=== PATIENT | female | born 1965 | race Caucasian/White ===

== ENCOUNTER 2018-04-08 09:02 | Outpatient (CLI) | payer BC ==
--- NOTE | 2018-04-15 08:54 | Mammography Report ---
Procedure Date: 04/08/2018 Accession Number: [id number] / [id number] Procedure: MGN - Screening Mammo Dig Bilat CPT Code: FULL RESULT: EXAM: Screening Mammo Dig Bilat DATE: 04/08/2018 9:21 AM CLINICAL HISTORY: 52-year-old female with family history of breast cancer in the mother at age 50. TECHNIQUE: Bilateral CC and MLO views were obtained. COMPARISON: 05/28/2008, 05/25/2007, 01/22/2005. FINDINGS: The breasts demonstrate heterogeneously dense fibroglandular parenchyma bilaterally. No suspicious masses, clustered microcalcifications, or regions of architectural distortion are identified. IMPRESSION: Negative examination RECOMMENDATION: Routine annual screening unless otherwise clinically indicated. BIRADS CATEGORY 1: Negative STANDARD QUALIFYING STATEMENTS: 1. This examination was reviewed with the aid of Computer-Aided Detection (CAD). 2. A negative or benign imaging report should not delay biopsy if clinically suspicious findings are present. Consider surgical consultation if warrented. More than 5% of cancers are not identified by imaging. 3. Dense breasts may obscure an underlying neoplasm.
== END 2018-04-08 09:03 | disposition home or self-care (01) ==
LOC: DI.N 09:02
PROVIDERS: ATTEND Obstetrics & Gynecology
DX: Z12.31 Encounter for screening mammogram for malignant neoplasm of breast (principal); Z80.3 Family history of malignant neoplasm of breast
CPT/HCPCS: 77067

== ENCOUNTER 2018-04-12 18:52 | Outpatient (CLI) | payer BC ==
--- NOTE | 2018-04-15 04:03 | Ultrasound Report ---
Procedure Date: 04/12/2018 Accession Number: [id number] / [id number] Procedure: US - Pelvic w/Transvaginal CPT Code: FULL RESULT: EXAM: Pelvic w/Transvaginal DATE: 04/12/2018 7:51 PM CLINICAL HISTORY: EXCESSIVE AND FREQUENT MENSTRUATION WITH REG CYCLE COMPARISON: None. TECHNIQUE: Realtime transabdominal imaging performed to identify the uterus and adnexa and as an overview of other pelvic structures, followed by transvaginal imaging for better assessment of the endometrium and/or adnexa, with static image documentation. FINDINGS: Uterus: 10.8 x 8.5 x 10.3 cm, volume 493 cc. Retroverted position. Prominent in overall size with heterogeneous echotexture. Masses: Anterior fundal mass measuring 8.5 x 8.5 x 8.1 cm is seen and may represent a submucosal fibroid. This obscures evaluation of the endometrium which cannot be confidently measured. Endometrium: Not well seen, see above. Cervix: Unremarkable. Right Ovary/Adnexa: 2.6 x 1.6 x 2.5 cm, volume 5.5 cc. Limited visualization with no definite abnormality. No adnexal mass is seen. Left Ovary/Adnexa: 2.7 x 1.5 cm, limited visualization with no definite abnormality. No adnexal mass is seen. Free Fluid: None. Other: None. IMPRESSION: Uterine mass measuring up to 8.5 obscuring the endometrium. Due to size and acoustic dropout possibly from calcifications, this is not definitely characterized. While this most likely represents a fibroid with submucosal component, consider MRI for definitive characterization versus clinical management. RADIA
== END 2018-04-12 18:53 | disposition home or self-care (01) ==
LOC: DI 18:52
PROVIDERS: ATTEND Obstetrics & Gynecology
DX: N92.0 Excessive and frequent menstruation with regular cycle (principal); N85.8 Other specified noninflammatory disorders of uterus
CPT/HCPCS: 76830; 76856

== ENCOUNTER 2024-02-11 19:50 | Emergency (ER) | payer BC, OTHER ==
--- NOTE | 2024-02-11 20:13 | ED Physician Documentation ---
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 She is maintained on mycophenolate and tacrolimus. She got home late from [employer] today after her checks and was running into the feet her dogs and tripped and fell onto outstretched left wrist. That is the only major site of pain for which she declines pain medication initial evaluation. She also has scrapes on the right palm, and both knees. PD PAST MEDICAL HISTORY - Present Medications Home Medications: Ambulatory Orders Medication Instructions Recorded Confirmed Clobetasol 0.05% Oint [Temovate 1 applic TOP BID 05/12/18 05/12/18 0.05% Oint] Etonogestrel/Ethinyl Estradiol 1 unit VG ONCE 05/12/18 05/12/18 [Nuvaring Vaginal Ring] HYDROcod/ACETAM 5/325 [[place] 5/325] 1 - 2 tab PO Q6H PRN #15 tablet 02/11/24 - Allergies Allergies/Adverse Reactions: Allergies Allergy/AdvReac Type Severity Reaction Status Date / Time amoxicillin Allergy Nausea Verified 02/11/24 20:00 NSAIDS (Non-Steroidal AdvReac Unknown Verified 02/11/24 20:01 Anti-Inflamma PD ED PE NORMAL - Vitals Vital signs reviewed: Yes - General General: Alert and oriented X 3, No acute distress - HEENT HEENT: PERRL, EOMI - Derm Derm: Normal color, Warm and dry - Extremities Extremities: Other (Dinner fork deformity of the left wrist consistent with a Colles' fracture. Normal neurovascular function of the hand. She has shallow scrapes on both knees and right palm without tenderness or limited range of motion.) Results - Vitals Vitals: Vital Signs - 24 hr 02/11/24 02/11/24 02/11/24 20:01 21:00 21:12 Temperature 36.6 C 36.6 C Heart Rate 86 62 70 Respiratory 20 16 16 Rate Blood Pressure 132/84 H 127/82 H 136/77 H O2 Saturation 100 99 98 02/11/24 02/11/24 02/11/24 21:15 21:30 22:00 Temperature Heart Rate 71 67 66 Respiratory 20 16 16 Rate Blood Pressure 127/86 H 144/95 H O2 Saturation 98 99 02/11/24 02/11/24 02/11/24 22:23 22:30 22:47 Temperature 36.6 C Heart Rate 70 71 78 Respiratory 16 16 20 Rate Blood Pressure 131/88 H 116/79 O2 Saturation 95 96 02/11/24 23:00 Temperature Heart Rate 67 Respiratory 16 Rate Blood Pressure 131/80 H O2 Saturation 99 Oxygen O2 Source Room air - Rads (name of study) L wrist XR Relevant Findings:: Final report received (Comminuted mildly displaced fracture of the distal radius with questionable intra-articular extension and a minimally displaced ulnar styloid fracture), EMP independent interpretation of test Procedures - Splint (location) - Minor LUE Splint applied by: Physician Type of splint: Fiberglass, Long arm, Sugar tong Other: Patient tolerated well, No complications, Neurovascular intact, Sling provided - Reduction Body part reduced: Left, Wrist Fracture or dislocation: Fracture dislocation Reduction aftercare: Alignment improved - Procedural sedation Sedation prep: Informed consent, PE performed, ASA 3 - severe disease Sedation Medications: propofol (40 then 40 then 40mg IVP = 120mg total; for second sedation 80 then 40mg = total 120mg IVP) Mallampati classification: I Patient status during sedation: Responds to tactile Sedation recovery: Recovered uneventfully Time in sedation (Minutes): 26 PD Medical Decision Making - ED course ED course: 58-year-old woman with history of liver transplant presents after a FOOSH injury with an angulated wrist injury. After discussion and written informed consent she was sedated with propofol and a reduction attempt was made and she was splinted. On the first set of postprocedural radiographs obtained at 2154 I was not happy with the persistent angulation of the distal radius. A second sedation was done, and after the second reduction, repeat radiographs done at 4, now I was more happy with the still slightly angulated but much better appearance of the distal radius. She was counseled on home care and orthopedic follow-up. Departure - Departure Disposition: 01 Home, Self Care Clinical Impression: Fracture of left wrist Qualifiers: Encounter type: initial encounter Fracture type: closed Qualified Code(s): S62.102A - Fracture of unspecified carpal bone, left wrist, initial encounter for closed fracture Condition: Good Record reviewed to determine appropriate education?: Yes Instructions: ED Fx Colles Wrist Redu Requ Follow-Up: [facility] [Provider Group] - Within 1 week Prescriptions: HYDROcod/ACETAM 5/325 [[place] 5/325] 1 - 2 tab PO Q6H PRN #15 tablet PRN Reason: Pain Comments: I sent your prescription electronically to the [facility] in [place]. Follow- up with the orthopedics office within the week or so, call Wednesday for an appointment. Elevate it is much as possible. Keep the splint on and dry. I am prescribing a short course of narcotic pain medication for you. These are potentially dangerous and addictive medications that should be used carefully. These medications may constipate you. Take an vvkv-[id number]-mrphbdt stool softener (docusate) twice daily with plenty of water while taking these medications. If you go 24 hours without a bowel movement, take [id number]-[id number] miralax, per package instructions. Do not drink or drive while taking these medications. If you received narcotic or sedating medications while in the emergency department, do not drive for 24 hours. Store this medication in a safe, secure place and out of reach of children. It is a violation of federal law to give or sell this medication to another person or to use in a manner other than prescribed. The ED will not refill narcotic prescriptions, including prescriptions lost or stolen. To dispose of unwanted medications: 1[facility] provides a drop box for medication in pill form only (no liquids) 8:00 am to 4:30 p.m. Wednesday-Wednesday in the lobby of the [facility], [address] [place] [address]. Empty pills into ziplock bag before disposal. Call [phone] for information. 2.[employer] is a free service available to all [facility] residents. Go to [email or web address] Note that many narcotic pain relievers also contain Tylenol/acetaminophen. Please ensure that your total dose of acetaminophen from all sources does not exceed 3 g (3000 mg) per day. Forms: PCP List Discharge Date/Time: 02/11/24 23:33
[2024-02-11] MEDS: PROPOFOL 200 MG/20 ML VIAL IVP STA ×2 (21:18→22:34)
--- NOTE | 2024-02-11 21:39 | XRAY Report ---
PROCEDURE: Wrist 3+V LT INDICATIONS: wrist inj TECHNIQUE: 3 views of the wrist were acquired. COMPARISON: None. FINDINGS: Bones: Comminuted mildly displaced fractures of the distal radius with questionable intra-articular extension. Minimally displaced ulnar styloid fracture. Remaining visualized osseous structures are in tact. Soft tissues: Soft tissue edema seen surrounding the wrist. IMPRESSION: Comminuted mildly displaced fracture of the distal radius with questionable intra-articular extension . Minimally displaced ulnar styloid fracture. Reviewed by: Troy Mills MD on 02/11/2024 9:37 PM PDT Approved by: Troy Mills MD on 02/11/2024 9:37 PM PDT Station ID: [id number]
[2024-02-11] MEDS: HYDROcod/ACET 5/325 Prepack 4 PO STA (23:01)
--- NOTE | 2024-02-11 23:14 | XRAY Report ---
PROCEDURE: Forearm LT INDICATIONS: post reduction TECHNIQUE: 2 views of the forearm were acquired. COMPARISON: None. FINDINGS: Bones: Splint material obscures fine bony detail. Status post reduction of the previously seen commin uted distal radial fracture with mildly improved alignment. Ulnar styloid fracture appears unchanged. Soft tissues: Soft tissue edema seen surrounding the wrist. IMPRESSION: Suspicious reduction with mildly improved alignment of the comminuted distal radial fracture. Unchang ed ulnar styloid fracture. Reviewed by: Troy Mills MD on 02/11/2024 11:12 PM PDT Approved by: Troy Mills MD on 02/11/2024 11:12 PM PDT Station ID: [id number]
--- NOTE | 2024-02-11 23:17 | XRAY Report ---
PROCEDURE: Forearm LT INDICATIONS: Post second reduction attempt TECHNIQUE: 2 views of the forearm were acquired. COMPARISON: Wrist and forearm radiographs 02/11/2024. FINDINGS: Bones: Splint material obscures fine bony detail. Repeat attempted reduction of the distal radial fra cture is seen with minimal improvement in alignment. Unchanged ulnar styloid fracture. Soft tissues: Soft tissue edema surrounding the wrist. IMPRESSION: Minimally improved alignment of the comminuted distal radial fracture. Unchanged ulnar styloid fractu re. Reviewed by: Troy Mills MD on 02/11/2024 11:16 PM PDT Approved by: Troy Mills MD on 02/11/2024 11:16 PM PDT Station ID: [id number]
[2024-02-11 23:22] VITALS: BP 131/80; O2SAT 99
== END 2024-02-11 23:33 | disposition home or self-care (01) ==
LOC: ED 19:50
DX: S52.532A Colles' fracture of left radius, initial encounter for closed fracture (principal); S52.612A Displaced fracture of left ulna styloid process, initial encounter for closed fracture; W01.0XXA Fall on same level from slipping, tripping and stumbling without subsequent striking against object, initial encounter; Y92.008 Other place in unspecified non-institutional (private) residence as the place of occurrence of the external cause
CPT/HCPCS: 25605; 99152; 99153; 99284; 99285

== ENCOUNTER 2024-02-18 02:14 | Emergency (ER) | payer OTHER ==
--- NOTE | 2024-02-18 02:30 | ED Physician Documentation ---
History of Present Illness - Stated complaint Stated Complaint: POST OP PX L ARM - Chief complaint Chief Complaint: Ext Problem - History obtained from History obtained from: Patient - Additonal information Additional information: 58-year-old woman with distal radius and ulna fracture presents status post ORIF of left forearm less than 24 hours previous, with pain to the forearm. Patient has intact sensation and movement of the fingers. Pain is refractory to the pain medication she was prescribed. PD PAST MEDICAL HISTORY - Past Medical History Past Medical History: No - Past Surgical History Past Surgical History: No - Present Medications Home Medications: Ambulatory Orders Medication Instructions Recorded Confirmed Clobetasol 0.05% Oint [Temovate 1 applic TOP BID 05/12/18 05/12/18 0.05% Oint] Etonogestrel/Ethinyl Estradiol 1 unit VG ONCE 05/12/18 05/12/18 [Nuvaring Vaginal Ring] HYDROcod/ACETAM 5/325 [[place] 5/325] 1 - 2 tab PO Q6H PRN #15 tablet 02/11/24 - Allergies Allergies/Adverse Reactions: Allergies Allergy/AdvReac Type Severity Reaction Status Date / Time amoxicillin Allergy Nausea Verified 02/18/24 02:24 NSAIDS (Non-Steroidal AdvReac Unknown Verified 02/18/24 02:24 Anti-Inflamma - Social History Does the pt smoke?: No Smoking Status: Never smoker PD ED PE NORMAL - Vitals Vital signs reviewed: Yes - General General: Alert and oriented X 3, No acute distress, Well developed/nourished - HEENT HEENT: Atraumatic, PERRL, EOMI - Derm Derm: Normal color, Warm and dry - Extremities Extremities: No deformity, Other (Left forearm in a splint with good capillary refill to fingers. normal sensation, normal movement of fingers. Mild swelling to distal left upper extremity. elisabeth wrap on splint was loosened without improvement in pain) Results - Vitals Vitals: Vital Signs - 24 hr 02/18/24 02/18/24 02:21 02:24 Temperature 36.8 C Heart Rate 77 77 Respiratory 18 Rate Blood Pressure 98/66 O2 Saturation 98 Oxygen O2 Source Room air PD Medical Decision Making - ED course ED course: 58-year-old woman presents with left forearm pain after having surgery less than 24 hours prior. She has normal sensation, movement and capillary refill. Declines tylenol (due to liver disease) or NSAIDs (due to taking tacrolimus). Pain did not improve with IM Dilaudid. Plan to administer additional dose. If improved she can follow-up outpatient with her surgeon Dr. Mejia at [facility]. Return precautions given. Departure - Departure Clinical Impression: Pain in extremity Condition: Stable Instructions: Pain Management Post Surg Comments: You were seen in the emergency department for Pain management after surgery. Please follow-up with your surgeon and return to the emergency department if you have any new or worsening symptoms or other concerns. Forms: PCP List
[2024-02-18] MEDS: HYDROmorphone 1 MG/ML CARPUJECT IM STA ×3 (02:46→05:38)
[2024-02-18] MEDS: CALCIUM CARBONATE CHEW 500 MG TABLET PO STA (04:14)
[2024-02-18 04:32] VITALS: O2SAT 97
[2024-02-18] MEDS: MORPHINE 10 MG/ML VIAL IM STA (07:52)
[2024-02-18] MEDS: oxyCODONE 5 MG TABLET PO STA (07:52)
[2024-02-18 08:23] VITALS: BP 123/75
== END 2024-02-18 08:15 | disposition home or self-care (01) ==
LOC: ED 02:14
DX: M79.632 Pain in left forearm (principal); S52.502S Unspecified fracture of the lower end of left radius, sequela; S52.602S Unspecified fracture of lower end of left ulna, sequela; X58.XXXS Exposure to other specified factors, sequela; Z98.890 Other specified postprocedural states
CPT/HCPCS: 96372; 99283; 99284; A9270; J1170